=== PATIENT | male | born 1945 | race Caucasian/White ===

== ENCOUNTER 2018-12-07 07:14 | Day surgery (SDC) | payer MEDICARE, BC ==
[2018-12-06 10:03] VITALS: BMI 28.5
--- NOTE | 2018-12-07 09:16 | RAD ---
XR Myelogram Lumbar Spine HISTORY: Patient with history of previous back surgery. Recurrent back pain and leg pain more on the right. COMPARISON: CT examination of 02/24/2014. FINDINGS: After informed consent was obtained the patient is prepped and draped in normal sterile fas hion. Local anesthesia was obtained 1% Xylocaine. 22-gauge spinal needle was inserted at the L2-3 level. The drops of clear CSF fluid were obtained and 12 cc of Isovue-200 M contrast. There is good o pacification of the thecal sac. The patient tolerated the procedure well without any immediate complications. Bilateral pedicle screws are seen at L4-5. Marked disc narrowing is seen at L3-4 L4-5 and L5 FINDINGS: Please refer to the CT report for complete description of the findings. IMPRESSION: Successful lumbar myelogram. Please refer to the CT report for findings
--- NOTE | 2018-12-07 09:27 | CT ---
CT MYELOGRAM LUMBAR SPINE: Date: 12/07/18 COMPARISON: 02/24/2014. HISTORY: Lumbar radiculopathy, pain, prior lumbar spine surgery. TECHNIQUE: Following intrathecal administration of iodinated contrast media, axial CT imaging obtaine d at 2.5 mm intervals through the lumbar spine with coronal and sagittal reformatted imaging. FINDINGS: 7 mm of anterolisthesis noted at L4-5. Conus medullaris terminates at the L1 level. T12-L1: Anterior osteophyte formation noted, particularly on the right. Bilateral facet hypertrophy n oted, right greater than left. No significant central canal stenosis. Mild bilateral neural foraminal stenosis, right greater than left. L1-2: Bilateral facet hypertrophy. Mild anterior osteophyte formation. Mild bilateral neural foramina l stenosis. No significant central canal stenosis. L2-3: Prominent anterior osteophyte formation, particularly on the right. Prominent bilateral facet h ypertrophy. No significant central canal stenosis. Moderate bilateral neural foraminal stenosis. L3-4: Bilateral facet hypertrophy. Fusion noted at bilateral facet joints. No significant central can al stenosis. No significant neural foraminal stenosis. L4-5: Bilateral facet hypertrophy. Prominent anterior osteophyte formation. No significant central ca nal stenosis. Osseous fusion noted at the facet joints. Mild right and moderate left neural foraminal stenosis on the basis of osteophyte formation. There are bilateral posterior pedicle screws at L4 and L5 levels with vertically oriented interlocking rods. L5-S1: Moderate bilateral facet hypertrophy. Mild bilateral neural foraminal stenosis. No significant central canal stenosis. No lytic or blastic bone lesion. No acute fracture or evidence of dislocation. Bilateral sacroiliac j oint anterior osteophyte formation. There is scattered atherosclerotic calcification of the abdominal aorta and its branches. IMPRESSION: Postoperative and degenerative changes within the lumbar spine as described above.: Transcribed Date/Time: 12/07/2018 10:18 AM
[2018-12-07 11:48] VITALS: BP 133/79; TEMP 97.2
== END 2018-12-07 10:30 | disposition home or self-care (01) ==
LOC: RAD 07:14
PROVIDERS: ATTEND Neurological Surgery
PROC: B02B1ZZ Computerized Tomography (CT Scan) of Spinal Cord using Low Osmolar Contrast (ICD-10-PCS; principal; 2018-12-07)
DX: M54.16 Radiculopathy, lumbar region (principal); M48.061 Spinal stenosis, lumbar region without neurogenic claudication; M48.10 Ankylosing hyperostosis [Forestier], site unspecified; I70.0 Atherosclerosis of aorta; I10 Essential (primary) hypertension; G89.29 Other chronic pain; M19.90 Unspecified osteoarthritis, unspecified site; E78.5 Hyperlipidemia, unspecified; Z79.891 Long term (current) use of opiate analgesic; Z79.899 Other long term (current) drug therapy; Z98.1 Arthrodesis status
CPT/HCPCS: 62304; 72132

== ENCOUNTER 2021-01-10 | Outpatient (CLI) | payer MEDICARE, BC | END 2021-01-10 09:53 | disposition home or self-care (01) ==

== ENCOUNTER 2023-05-06 13:42 | Outpatient (CLI) | payer MEDICARE | END 2023-05-06 13:43 | disposition home or self-care (01) | LOC: SCSMRI 13:42 | PROVIDERS: ATTEND Anesthesiology | DX: M47.26 Other spondylosis with radiculopathy, lumbar region (principal); M96.1 Postlaminectomy syndrome, not elsewhere classified; M89.38 Hypertrophy of bone, other site; Z98.1 Arthrodesis status | CPT/HCPCS: 72158; 82565 ==